=== PATIENT | female | born 1980 | race Caucasian/White ===

== ENCOUNTER 2017-03-26 21:33 | Emergency (ER) | payer SELFPAY ==
--- NOTE | ~2017-03-26 | ER ---
PATIENT'S NAME: DELONTE [facility] AGE: 36 Y [address] ROOM: [place] [address] LOCATION: [facility] ADMIT DATE: 03/26/2017 ER/Outpatient Report DISCHARGE DATE: 03/27/2017 FAMILY PHYSICIAN: Physician, Unknown ATTENDING PHYSICIAN: Jimenez Ibanez Admission date and time documented on the medical record. I saw the patient at 2135 hours. CHIEF COMPLAINT: Syncopal episode. HISTORY OF PRESENT ILLNESS: The patient is a 36-year-old female, who was at work when she started having some hot flashes. The hot flashes got closer and closer together and next thing she knew she was waking up on the floor. She had a syncopal episode. I believe that was witnessed. She works at a correction. She was brought to the emergency room by [place] [address] EMS crew. On arrival, the patient is awake, responsive. [place] generalized weakness and tiredness. No headache, eyes, ears, nose, throat, neck, or spine pain. Other than the syncopal episode, has had no trauma. No recent colds, coughs, flus, fever, chills, or sweats. No chest pain, shortness of breath. No abdominal pain, nausea, vomiting, or diarrhea. No incontinence of stool or urine. No joint or muscle swelling, redness, or pain. No skin eruptions or rash. Does have a history of hypothyroidism. No other endocrine problems, neuro changes, or psych issues. HOME MEDICATIONS: See attached medication list. ALLERGIES: SHELLFISH. SOCIAL HISTORY: The patient smokes a half pack of cigarettes per day. Nondrinker. SIGNIFICANT PAST MEDICAL HISTORY: Hypothyroidism, tobacco abuse. OPERATIONS: None. REVIEW OF SYSTEMS: All systems reviewed by me are negative with the exception of those discussed in the history of the present illness. PATIENT'S NAME: DELONTE ARORA [facility] AGE: 36 Y [address] ROOM: [place] [address] LOCATION: [facility] ADMIT DATE: 03/26/2017 ER/Outpatient Report DISCHARGE DATE: 03/27/2017 FAMILY PHYSICIAN: Physician, Unknown ATTENDING PHYSICIAN: Jimenez Ibanez PHYSICAL EXAMINATION: VITAL SIGNS: Temperature 97.8 tympanic, pulse 77 and regular, respirations 16, blood pressure 119/80, O2 saturation on room air is 98%. HEAD: Normocephalic. EYES EARS, NOSE, AND THROAT: Clear. Mucous membranes moist. NECK: Negative. LUNGS: Clear. HEART: Regular. ABDOMEN: Soft, nontender. Good bowel tones. No organomegaly or abnormal mass palpable. EXTREMITIES: Without peripheral edema, cyanosis, or deformity. NEURO: Cranial nerves intact. No lateralizing sign. The patient is awake, alert, cooperative. Motor and sensory intact. NIH stroke scale was zero. SKIN: Clear. No skin eruptions or rash. LABORATORY DATA AND X-RAYS: EKG showed sinus rhythm. No acute ST elevation, ischemic change, or arrhythmia. Chest x-ray showed no acute infiltrate or changes. We will review x-ray with the radiologist. CT scan of the head showed no intracranial bleed, midline shift, mass effect, or skull fracture. CT scan was read by Radiology, see dictated transcribed report. Laboratory: Sedimentation rate was slightly elevated at 21. CRP was elevated at 0.95. Quantitative serum HCG was normal, less than 1.0. TSH was normal at 4.02. ProBNP was normal at 77. CMS was normal except for a slight low potassium of 3.6, slightly elevated chloride of 112, low anion gap of 8.6, low calcium of 8.1, low BUN of 4. Magnesium was 2.1. CPK was 96. Qomad-ru-pcrr cardiac enzymes were normal. White count was 10,000, 66 segs, 22 lymphs, 8 monos, 3 eos, hemoglobin was 14.2 with hematocrit 41.3, platelet count is 226,000. PTT was 28, pro-time was 10.9 with an INR 1.04. D-dimer was 0.32. Urinalysis was clear. Venous pH was normal at 7.38. IMPRESSION: Syncopal episode. Etiology uncertain, most likely vasovagal, simple faint, normal workup. PLAN: The patient was given 1 L normal saline IV in the emergency room. Discharged home. Observation. Activity as tolerated. Continue present home medications and care. Good fluid intake. Good hydration. Balanced diet. Exercise. Good rest. Follow up with personal physician as needed. Discussion ensued with the patient concerning my findings and recommendations, she understands. PATIENT'S NAME: DELONTE [facility]A [facility] AGE: 36 Y [address] ROOM: [place] [address] LOCATION: [facility] ADMIT DATE: 03/26/2017 ER/Outpatient Report DISCHARGE DATE: 03/27/2017 FAMILY PHYSICIAN: Emily Doll ATTENDING PHYSICIAN: Jimenez Ibanez MD IDANIA HERNANDEZ/juan antonio /[id number] d: 03/27/175 t: 03/27/17 1813, OUTPATIENT REPORT
[2017-03-26 21:58] LABS: BILIRUBIN URINE NEGATIVE (NEGATIVE); BLOOD URINE NEGATIVE /UL (NEGATIVE); GLUCOSE URINE NEGATIVE (NEGATIVE); KETONE URINE NEGATIVE (NEGATIVE); LEUKOCYTES URINE NEGATIVE /UL (NEGATIVE); NITRITE URINE NEGATIVE (NEGATIVE); PROTEIN URINE NEGATIVE (NEGATIVE); SPEC GRAVITY URINE 1.005 (1.003-1.035); UROBILINOGEN URINE NORMAL (NORMAL)
[2017-03-26 22:07] LABS: COLOR URINE YELLOW (YELLOW); TURBIDITY URINE CLEAR (CLEAR)
[2017-03-26 22:33] LABS: BASOPHIL % 0.3 %; BICARBONATE 27.2 mmol/L (18.0-23.0); EOSINOPHIL # 0.3 K/uL (0.0-0.5); EOSINOPHIL % 3.2 %; HEMATOCRIT 41.3 % (33.0-46.0); HEMOGLOBIN 14.2 g/dL (11.0-15.0); IMMATURE GRANULOCYTE % 0.3 %; LYMPHOCYTE # 2.2 K/uL (0.8-4.0); MCH 32.6 pg (27.0-34.0); MCHC 34.4 gm/dL (32.0-36.5); MCV 94.7 fl (83.0-98.0); MONOCYTE # 0.8 K/uL (0.0-1.0); MONOCYTE % 8.3 %; MPV 10.2 fl (9.4-12.4); NEUTROPHIL # (ANC) 6.6 K/uL (1.8-7.8); NEUTROPHIL % 65.9 %; NRBC % 0 /100WBC (0-0.00); PCO2 46 mmHg (35-45); PLATELET COUNT 226 K/uL (150-450); RBC 4.36 M/uL (3.50-5.50)
[2017-03-26 22:34] LABS: PO2 26 mmHg (80-90)
[2017-03-26 22:45] LABS: INR - (THERAPEUTIC) 1.04 (0.92-1.07); PROTIME 10.9 SECONDS (9.8-11.4); PTT 28 SECONDS (25-32)
[2017-03-26 23:03] LABS: ALBUMIN 3.4 gm/dL (3.5-5.0); ALK PHOS 89 IU/L (33-138); ALT 20 IU/L (12-78); ANION GAP 8.6 (10.0-19.0); AST 14 IU/L (10-40); BLOOD UREA NITROGEN 4 mg/dL (6-24); CALCIUM 8.1 mg/dL (8.5-10.5); CHLORIDE 112 mMol/L (96-110); CO2 25 mMol/L (22-32); CPK 96 IU/L (21-215); CREATININE 0.8 mg/dL (0.5-1.1); ESTIMATED GFR (MDRD EQUATION) > 60; MAGNESIUM 2.1 mg/dL (1.8-2.6); POTASSIUM 3.6 mMol/L (3.7-5.1); SODIUM 142 mMol/L (135-145); TOTAL BILIRUBIN 0.4 mg/dL (0.0-1.5); TOTAL PROTEIN 7.1 g/dL (6.0-8.4)
== END 2017-03-27 00:21 | disposition disaster alternative care site (69) ==
LOC: GMED 21:33
PROVIDERS: Emergency Medicine
DX: R55 Syncope and collapse (principal); E03.9 Hypothyroidism, unspecified; F17.210 Nicotine dependence, cigarettes, uncomplicated; Z91.013 Allergy to seafood; Z79.899 Other long term (current) drug therapy